=== PATIENT | male | born 1960 | race Caucasian/White ===

== ENCOUNTER → 2016-06-11 | Outpatient (CLI) | payer OTHER ==
[~2016-06-11] MED LIST: FENOGLIDE40 MG PO; HYDROCODONE-AP1 EAC6 PO; REMICADE 1100 MG/VIA
--- NOTE | ~2016-06-11 | EKG ---
[address] [address] ELECTROCARDIOGRAM REPORT Name: DENEENBrennaMATTSHAR [id number] Admission: 06/11/16 Attend Phys: Damaso Bowens DO Discharge: Date of : 60 Report #: [id number] THIS REPORT FOR: //name// 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: RAVINDRA : 1960 Requested By: Damaso Bowens Order Number: [id number] MD: Vikram Echavarria Measurements Intervals [place] Rate: 93 P: 54 ND: 200 QRS: 35 QRSD: 88 T: 21 QT: 356 QTc: 443 Interpretive Statements Sinus rhythm Borderline prolonged ND interval Otherwise normal tracing No previous ECG available for comparison Electronically Signed On 06-12-2016 7:48:04 CDT by Vikram Echavarria [email or web address] <ELECTRONICALLY SIGNED> By: Vikram Echavarria MD, [facility] 06/12/16 0748 [id number] 06 Vikram Echavarria MD, FACC /EPI
== END | disposition home or self-care (01) ==
LOC: LITH 06:04
DX: N20.0 Calculus of kidney (principal); E78.00 Pure hypercholesterolemia, unspecified

== ENCOUNTER 2020-06-04 21:56 | Inpatient (IN) | payer BC ==
[~2020-06-04] VITALS: Ht 182.9 cm; Wt 93.7 kg
[2020-06-04 21:45] VITALS: BP 133/75
[2020-06-04] MEDS ORDERED: IRON325 PO (23:15)
[2020-06-04] MEDS ORDERED: FISH OIL 1,001000 M3 PO (23:16)
[2020-06-04] MEDS ORDERED: VITAMIN D325 MC1 PO (23:16)
[2020-06-04] MEDS ORDERED: B COMPLEX1 EACH PO (23:17)
[2020-06-04] MEDS ORDERED: ZINC50 M1 PO (23:17)
[2020-06-04] MEDS ORDERED: TOPROL XL25 MG PO (23:19)
--- NOTE | 2020-06-05 00:54 | NUR ---
2150: PATIENT HERE PER EMS AND WALKED TO BED WITH STEADY GAIT. ADMISSION PROCESS INITIATED. AWAITING TO HAVE PATIENT IN COMPUTOR. 2240: SHERMAN MUNIZP HERE. ADMISSION PROCESS COMPLETED. ORIENTED TO ROOM AND FLOOR POLICIES. VOICES UNDERSTANDING. UP AD LAURIE WITH STEADY GAIT. DENIES COMPLAINTS OF PAIN, NAUSEA OR VOMITTING AT THIS TIME. 2345: ORDERS FOR MST. TELEMETRY SHOWS ST, 1 DEGREE AVB RATE 93. RESTING QUIETLY WITHOUT COMPLAINTS.
[2020-06-05] MEDS ORDERED: METOPROLOL TART25 MG PO (02:03)
[2020-06-05 03:30] VITALS: BP 115/71
--- NOTE | 2020-06-05 05:03 | NUR ---
STRAINED ALL URINE. NO STONES RETRIEVED. PAIN MEDICATION GIVEN NEEDED. STATES HAS SOME NAUSEA AND DENIES NEED FOR NAUSEA MED. WORKING ON GOALS AND PLAN OF CARE FOR NOC. CONTINUE TO ASHLEY COSTELLO.
[2020-06-05 05:04] LABS: CALCIUM 7.5 mg/dL (8.5-10.1)
[2020-06-05 05:23] LABS: CHOLESTEROL 95 mg/dL (<200); HDL CHOLESTEROL 28 mg/dL (>40); LDL CHOLESTEROL 34 mg/dL (<100); TC:HDL 3.4 Ratio (Not establshd); TRIGLYCERIDE 165 mg/dL (<150); VLDL 33 mg/dL (<40)
[2020-06-05 05:24] LABS: SERUM ASSESSMENT Clear
[2020-06-05 05:28] LABS: HEMATOCRIT 35.9 % (42.0-52.0); HEMOGLOBIN 11.6 gm/dL (14.0-18.0); MCHC 32.3 g/dL (28.0-37.0); MCV 89.9 fL (80.0-100.0); RBC 3.99 mil/uL (4.50-6.00); WBC 11.9 thou/uL (4.0-11.0)
--- NOTE | 2020-06-05 08:14 | NUR ---
ASSUMED PT CARE AT 0700. PT ASSESSMENT PERFORMED CHARTED. PTS PLAN FOR THE DAY IS TO GO TO SURGERY WITH UROLOGY TO RETRIEVE KIDNEY STONE. PTS PROCEDURE PLANNED FOR 0900. PT THEN COULD POSSIBLY GO HOME FOLLOWING PROCEDURE PER UROLOGY. VSS. WILL CONTINUE TO MONITOR AND FOLLOW POC.
[2020-06-05 08:26] VITALS: BP 125/75
[2020-06-05 16:01] VITALS: BP 110/68
--- NOTE | 2020-06-05 16:34 | NUR ---
PT STATES HE IS FEELS LIKE SOME URINARY RETENTION. PT WAS BLADDER SCANNED, PT HAS 109ML IN HIS BLADDER.
--- NOTE | 2020-06-05 18:00 | NUR ---
PHONE CALL PLACED TO DR DUONG ABOUT PATIENTS BLOOD CLOTS IN URINE. AWAITING CALL BACK.
[2020-06-05 19:39] VITALS: BP 111/55
[2020-06-05 23:44] VITALS: BP 107/65
[2020-06-06 04:20] LABS: HEMATOCRIT 34.4 % (42.0-52.0); HEMOGLOBIN 11.3 gm/dL (14.0-18.0); MCH 29.5 pg (26.0-34.0); MCHC 32.9 g/dL (28.0-37.0); MCV 89.4 fL (80.0-100.0); RBC 3.85 mil/uL (4.50-6.00); RDW 14.1 % (10.5-14.5); WBC 14.8 thou/uL (4.0-11.0)
[2020-06-06 04:26] LABS: CALCIUM 7.5 mg/dL (8.5-10.1); CREATININE 2.7 mg/dL (0.7-1.3); MAGNESIUM 1.3 mg/dL (1.8-2.4); POTASSIUM 3.2 mmol/L (3.5-5.1)
[2020-06-06 04:53] VITALS: BP 106/51
--- NOTE | 2020-06-06 05:47 | NUR ---
PT UP TO BR TO USE URINAL, URINE COLOR HAS LIGHTENED TO PINK TINGED URINE WITH SMALL CLOTS THRU THE NOC, VSS WITH TEMP AT 100.3 AND TYLRNOL GIVEN, PT REQUESTING PO PAIN MEDS RECEIVED ORDER FROM ONCALL HOSPITALIST, PT STATES PAIN AND SPASMS ARE BETTER CONTROLLED THIS AM, HR ST WITH RATE UP TO 120 TO 140 WITH URINATION, WILL CON'T TO MONITOR PER PPOC.
[2020-06-06 07:00] VITALS: BP 110/66
[2020-06-06 09:31] LABS: URINE BILIRUBIN NEGATIVE (Negative); URINE BLOOD 3+ (Negative); URINE CLARITY CLEAR; URINE COLOR YELLOW; URINE GLUCOSE-RANDOM* NEGATIVE (Negative); URINE KETONES NEGATIVE (Negative); URINE NITRITE-REFLEX NEGATIVE (Negative); URINE PROTEIN (DIPSTICK) 2+ (Negative); URINE SPECIFIC GRAVITY 1.015 (1.005-1.035); URINE UROBILINOGEN 0.2 E.U./dl (0.2-1.0)
[2020-06-06 09:32] LABS: URINE LEUKOCYTES-REFLEX 1+ (Negative)
[2020-06-06 09:38] LABS: CASTS None Seen /LPF (None Seen); SQUAMOUS None Seen /LPF (0-3)
[2020-06-06 09:39] LABS: BACTERIA-REFLEX 1-9 Few /HPF (None Seen); CRYSTALS None Seen /LPF (None Seen); URINE RBC >20 Many /HPF (NONE SEEN); URINE WBC-REFLEX 6-15 Few /HPF (0-5)
[2020-06-06 12:00] VITALS: BP 114/68
[2020-06-06 16:00] VITALS: BP 106/61
[2020-06-06 19:00] VITALS: BP 108/66
[2020-06-07 03:30] VITALS: BP 132/74
[2020-06-07 05:42] LABS: ALBUMIN 2.3 g/dL (3.4-5.0); CALCIUM 7.7 mg/dL (8.5-10.1); PHOSPHORUS 2.5 mg/dL (2.5-4.9); POTASSIUM 3.9 mmol/L (3.5-5.1)
--- NOTE | 2020-06-07 06:18 | NUR ---
ASSUMED CARE AT 1900. GAVE PAIN MEDS x1 OVERNIGHT. STRAINING URINE OVERNIGHT, NO KIDNEY STONES NOTED; URINE IS ORANGE COLOR W/SLIGHT BLOOD TINGE PRESENT. SR-ST, HR IN 120'S WHEN UP TO BATHROOM OR HAVING PAIN. NO OTHER CONCERNS, POSSIBLE D/C HOME TODAY.
[2020-06-07 07:56] VITALS: BP 118/77
[2020-06-07 08:07] LABS: ABSOLUTE NEUTROPHILS 8.2 thou/uL (1.4-8.2); BASOPHILS 1.2 % (0.0-2.0); EOSINOPHILS 3.2 % (0.0-3.0); HEMATOCRIT 34.3 % (42.0-52.0); HEMOGLOBIN 11.3 gm/dL (14.0-18.0); LYMPHOCYTES 17.8 % (24.0-44.0); MCH 29.7 pg (26.0-34.0); MCHC 32.9 g/dL (28.0-37.0); MCV 90.3 fL (80.0-100.0); MONOCYTES 10.5 % (1.0-8.0); PLATELET COUNT 242 thou/uL (150-400); POLYS 67.3 % (36.0-66.0); RBC 3.81 mil/uL (4.50-6.00); WBC 12.1 thou/uL (4.0-11.0)
[2020-06-07] MEDS ORDERED: CIPRO500 M1 PO (12:05)
[2020-06-07] MEDS ORDERED: HYOSCYAMINE0.125 M1 PO (12:05)
[2020-06-07] MEDS ORDERED: ACETAMINOPHEN325 M1 PO (12:05)
[2020-06-07] MEDS ORDERED: PHENAZOPYRIDIN100 M1 PO (12:05)
[2020-06-07] MEDS ORDERED: FLOMAX0.4 MG PO (12:05)
[2020-06-07] MEDS ORDERED: MAGNESIUM400 MG PO (12:05)
[2020-06-07 12:59] VITALS: BP 118/77
--- NOTE | 2020-06-07 13:56 | NUR ---
ASSUMED PATIENT CARE AT 0700. PATIENT HAVING FREQUENT URINATION, NO STONES FOUND UPON STRAINING. PATIENT DISCHARGED. IV REMOVED. DISCHARGE PACKET REVIEWED WITH PATIENT. NEW MEDICATIONS AND FOLLOW UP APPOINTMENTS REVIEWED. PATIENT ESCORTED OUTSIDE VIA WHEELCHAIR.
== END 2020-06-07 15:16 | disposition home or self-care (01) | DRG 660 ==
LOC: 2N 21:56
PROVIDERS: Internal Medicine Nephrology; Nurse Practitioner Family; Physician Assistant; ADMIT Internal Medicine; ATTEND Internal Medicine
PROC: 0T778DZ Dilation of Left Ureter with Intraluminal Device, Via Natural or Artificial Opening Endoscopic (ICD-10-PCS; principal; 2020-06-05)
PROC: 0TC78ZZ Extirpation of Matter from Left Ureter, Via Natural or Artificial Opening Endoscopic (ICD-10-PCS; principal; 2020-06-05)
DX: N13.6 Pyonephrosis (principal); K50.90 Crohn's disease, unspecified, without complications; S37.10XA Unspecified injury of ureter, initial encounter; D62 Acute posthemorrhagic anemia; Q61.3 Polycystic kidney, unspecified; N17.9 Acute kidney failure, unspecified; Z96.0 Presence of urogenital implants; E78.5 Hyperlipidemia, unspecified; Y33.XXXA Other specified events, undetermined intent, initial encounter; D63.8 Anemia in other chronic diseases classified elsewhere; E87.6 Hypokalemia; K52.3 Indeterminate colitis; N18.9 Chronic kidney disease, unspecified; I12.9 Hypertensive chronic kidney disease with stage 1 through stage 4 chronic kidney disease, or unspecified chronic kidney disease; Z86.16 Personal history of COVID-19; Z88.8 Allergy status to other drugs, medicaments and biological substances; Z79.899 Other long term (current) drug therapy; Z87.442 Personal history of urinary calculi; Z87.891 Personal history of nicotine dependence; Y93.89 Activity, other specified; Y92.89 Other specified places as the place of occurrence of the external cause; Y99.8 Other external cause status; N32.89 Other specified disorders of bladder; R31.0 Gross hematuria; R35.0 Frequency of micturition; E83.42 Hypomagnesemia
CPT/HCPCS: 10081; 50010; 50101; 50164; 51767; 51776; 53331; 53650; 56815; 57160; 58565; 58732; 62110; 62900; 70005

== ENCOUNTER 2021-03-10 18:11 | Inpatient (IN) | payer BC, OTHER ==
[~2021-03-10] VITALS: Ht 182.9 cm; Wt 93.0 kg
[~2021-03-10 18:11] MED LIST changes: +ACETAMINOPHEN325 M1 PO; +B COMPLEX1 EACH PO; +CIPRO500 M1 PO; +FISH OIL 1,001000 M3 PO; +FLOMAX0.4 MG PO; +HYOSCYAMINE0.125 M1 PO; +IRON325 PO; +MAGNESIUM400 MG PO; +METOPROLOL TART25 MG PO; +PHENAZOPYRIDIN100 M1 PO; +TOPROL XL25 MG PO; +VITAMIN D325 MC1 PO; +ZINC50 M1 PO
[2021-03-10 18:27] VITALS: BP 149/87
[2021-03-10 18:33] LABS: URINE BILIRUBIN NEGATIVE (Negative); URINE BLOOD 2+ (Negative); URINE CLARITY CLEAR; URINE COLOR YELLOW; URINE GLUCOSE-RANDOM* NEGATIVE (Negative); URINE KETONES NEGATIVE (Negative); URINE LEUKOCYTES-REFLEX NEGATIVE (Negative); URINE NITRITE-REFLEX NEGATIVE (Negative); URINE PROTEIN (DIPSTICK) TRACE (Negative); URINE SPECIFIC GRAVITY >= 1.030 (1.005-1.035); URINE UROBILINOGEN 0.2 E.U./dl (0.2-1.0)
[2021-03-10 18:51] LABS: BACTERIA-REFLEX 1-9 Few /HPF (None Seen); CASTS None Seen /LPF (None Seen); CRYSTALS None Seen /LPF (None Seen); SQUAMOUS None Seen /LPF (0-3); URINE WBC-REFLEX 0-5 Rare /HPF (0-5)
[2021-03-10 19:29] LABS: HEMOGLOBIN 13.9 gm/dL (14.0-18.0); RBC 4.79 mil/uL (4.50-6.00)
[2021-03-10 19:31] LABS: MCHC 32.3 g/dL (28.0-37.0); MCV 89.7 fL (80.0-100.0); PLATELET COUNT 422 thou/uL (150-400); RDW 14.6 % (10.5-14.5); WBC 20.6 thou/uL (4.0-11.0)
[2021-03-10 20:00] LABS: ABSOLUTE NEUTROPHILS 14.6 thou/uL (1.4-8.2)
[2021-03-10 20:58] LABS: ALBUMIN 3.1 g/dL (3.4-5.0); CALCIUM 7.8 mg/dL (8.5-10.1); CREATININE 1.6 mg/dL (0.7-1.3); TOTAL BILIRUBIN 0.4 mg/dL (0.2-1.0); TOTAL PROTEIN 6.6 g/dL (6.4-8.2)
[2021-03-10 21:02] LABS: POTASSIUM 4.3 mmol/L (3.5-5.1)
[2021-03-10 22:24] LABS: CHOLESTEROL 115 mg/dL (<200); HDL CHOLESTEROL 31 mg/dL (>40); LDL CHOLESTEROL 14 mg/dL (<100); TC:HDL 3.7 Ratio (Not establshd); TRIGLYCERIDE 352 mg/dL (<150); VLDL 70 mg/dL (<40)
[2021-03-10 22:25] LABS: SERUM ASSESSMENT Clear
[2021-03-10 23:30] VITALS: BP 128/87
[2021-03-11] VITALS: BP 145/97
--- NOTE | 2021-03-11 01:02 | NUR ---
PT IS A/O X4 AND IS UP AD LAURIE. RA. VSS. AFEBRILE. C/O PAIN TO LEFT FLANK. PRN PAIN MEDICATION GIVEN. FLUIDS INFUSING AT PRESCRIBED RATE. IV TO RIGHT AC INFILTRATED AND REMOVED. ADMISSION COMPLETED. PT EDUCATED ON USE OF CALL LIGHT AND BED CONTROLS. CALLS OUT APPROPRIATELY FOR ASSISTANCE. CALL LIGHT IS WITHIN REACH.
[2021-03-11 05:18] LABS: HEMOGLOBIN 13.2 gm/dL (14.0-18.0); RBC 4.54 mil/uL (4.50-6.00); RDW 13.5 % (10.5-14.5); WBC 14.5 thou/uL (4.0-11.0)
[2021-03-11 05:33] LABS: CREATININE 1.7 mg/dL (0.7-1.3); POTASSIUM 3.6 mmol/L (3.5-5.1)
[2021-03-11 07:24] VITALS: BP 122/77
--- NOTE | 2021-03-11 10:31 | NUR ---
Assumed care of pt at 0700. Pt a&ox4. Up ad santiago. Pt states pain is much better. Urology consulted. Tentatively scheduled for surgery. IVF infusing. Call light within reach. Will continue to monitor.
[2021-03-11 12:07] LABS: MAGNESIUM 1.6 mg/dL (1.8-2.4); PHOSPHORUS 3.2 mg/dL (2.5-4.9)
[2021-03-11 16:22] VITALS: BP 122/77
== END 2021-03-11 17:25 | disposition home or self-care (01) | DRG 690 ==
LOC: ER 18:11 → EROBS 20:24 → ER 20:24 → 4S 23:55 → EROBS 23:59 → 4S 23:59
PROVIDERS: Nurse Practitioner Family; Physician Assistant; ADMIT Hospitalist; ATTEND Hospitalist
DX: N13.6 Pyonephrosis (principal); K50.90 Crohn's disease, unspecified, without complications; N17.9 Acute kidney failure, unspecified; D64.9 Anemia, unspecified; Z20.822 Contact with and (suspected) exposure to COVID-19; E78.5 Hyperlipidemia, unspecified; Z86.16 Personal history of COVID-19; Z88.8 Allergy status to other drugs, medicaments and biological substances; Z87.891 Personal history of nicotine dependence
CPT/HCPCS: 10195

== ENCOUNTER 2021-03-24 22:03 | Inpatient (IN) | payer BC, OTHER ==
[~2021-03-24] VITALS: Ht 182.9 cm; Wt 93.0 kg
[2021-03-24 22:09] VITALS: BP 150/82
[2021-03-24 23:02] LABS: ABSOLUTE NEUTROPHILS 12.7 thou/uL (1.4-8.2); BASOPHILS 0.8 % (0.0-2.0); HEMATOCRIT 39.4 % (42.0-52.0); LYMPHOCYTES 15.1 % (24.0-44.0); MCH 29.4 pg (26.0-34.0); MCHC 32.9 g/dL (28.0-37.0); MCV 89.3 fL (80.0-100.0); PLATELET COUNT 343 thou/uL (150-400); POLYS 76.1 % (36.0-66.0); RBC 4.42 mil/uL (4.50-6.00); RDW 13.5 % (10.5-14.5); WBC 16.7 thou/uL (4.0-11.0)
[2021-03-24 23:10] LABS: URINE BILIRUBIN NEGATIVE (Negative); URINE BLOOD 1+ (Negative); URINE CLARITY CLEAR; URINE COLOR YELLOW; URINE GLUCOSE-RANDOM* NEGATIVE (Negative); URINE KETONES NEGATIVE (Negative); URINE LEUKOCYTES-REFLEX NEGATIVE (Negative); URINE NITRITE-REFLEX NEGATIVE (Negative); URINE PROTEIN (DIPSTICK) NEGATIVE (Negative); URINE SPECIFIC GRAVITY 1.025 (1.005-1.035); URINE UROBILINOGEN 0.2 E.U./dl (0.2-1.0)
[2021-03-24 23:12] LABS: CALCIUM 7.8 mg/dL (8.5-10.1); CREATININE 1.7 mg/dL (0.7-1.3); POTASSIUM 4.1 mmol/L (3.5-5.1)
[2021-03-24 23:16] LABS: ALBUMIN 2.9 g/dL (3.4-5.0); TOTAL BILIRUBIN 0.3 mg/dL (0.2-1.0); TOTAL PROTEIN 6.4 g/dL (6.4-8.2)
[2021-03-24 23:35] LABS: BACTERIA-REFLEX 1-9 Few /HPF (None Seen); CASTS None Seen /LPF (None Seen); CRYSTALS None Seen /LPF (None Seen); MUCUS 0-3 Light strn/LPF (None Seen); SQUAMOUS 0-3 Few /LPF (0-3); URINE RBC 3-10 Few /HPF (NONE SEEN); URINE WBC-REFLEX 0-5 Rare /HPF (0-5)
[2021-03-25 00:54] VITALS: BP 123/80
[2021-03-25 02:25] VITALS: BP 132/90
[2021-03-25 10:36] LABS: HEMATOCRIT 37.8 % (42.0-52.0); HEMOGLOBIN 12.4 gm/dL (14.0-18.0); MCHC 32.7 g/dL (28.0-37.0); MCV 88.7 fL (80.0-100.0); RBC 4.26 mil/uL (4.50-6.00); RDW 13.6 % (10.5-14.5); WBC 12.4 thou/uL (4.0-11.0)
[2021-03-25 10:46] LABS: CREATININE 1.9 mg/dL (0.7-1.3); MAGNESIUM 1.7 mg/dL (1.8-2.4); POTASSIUM 3.9 mmol/L (3.5-5.1)
[2021-03-25 11:02] VITALS: BP 1128/82
[2021-03-25 12:45] VITALS: BP 146/91
--- NOTE | 2021-03-25 15:45 | NUR ---
Patient arrived to the floor at 1345, axox4, patient is up as own, family at bedside. no pain, straining urine. call light within reach, will continous monitoring.
[2021-03-25 17:09] VITALS: BP 129/85
[2021-03-25 19:01] VITALS: BP 128/69
[2021-03-26 04:19] VITALS: BP 139/69
[2021-03-26 05:43] LABS: HEMATOCRIT 34.3 % (42.0-52.0); HEMOGLOBIN 11.2 gm/dL (14.0-18.0); MCH 29.2 pg (26.0-34.0); MCHC 32.7 g/dL (28.0-37.0); MCV 89.3 fL (80.0-100.0); RBC 3.84 mil/uL (4.50-6.00); RDW 13.4 % (10.5-14.5); WBC 11.5 thou/uL (4.0-11.0)
[2021-03-26 06:08] LABS: CALCIUM 7.6 mg/dL (8.5-10.1); CREATININE 2.2 mg/dL (0.7-1.3); MAGNESIUM 1.6 mg/dL (1.8-2.4)
[2021-03-26 07:45] VITALS: BP 121/78
--- NOTE | 2021-03-26 08:03 | NUR ---
PT AMBULATING TO BATHROOM INDEPENDENTLY AND IS TOLERATING WELL. DENIES NEED FOR PAIN MEDICATION. RESTING COMFORTABLY. NO NEEDS VOICED. CALL LIGHT WITHIN REACH. FREQUENT OBSERVATION.
[2021-03-26 18:37] VITALS: BP 110/68
--- NOTE | 2021-03-26 19:09 | NUR ---
Patient is alert and oriented x4, ambulating in the odell, straining urine, but not passing any stone. surgery tomorrow, call light within reach, will continous monitoring.
[2021-03-26 20:38] VITALS: BP 122/68
--- NOTE | 2021-03-27 05:34 | NUR ---
ASSUMED PT CARE THIS PM.PT IS ALERT AND ORIENTED X4. PT DID NOT C/O PAIN.URINE IS BEING STRAINED. MEDS WERE GIVEN PER EMAR ORDERS. PT IS ON RA. FALL PRECAUTIONS IN PLACE.WILL CONTINUE TO MONITOR.
[2021-03-27 05:52] LABS: HEMATOCRIT 32.6 % (42.0-52.0); HEMOGLOBIN 10.9 gm/dL (14.0-18.0); MCH 29.9 pg (26.0-34.0); MCHC 33.3 g/dL (28.0-37.0); MCV 89.7 fL (80.0-100.0); RBC 3.64 mil/uL (4.50-6.00); RDW 13.5 % (10.5-14.5); WBC 9.6 thou/uL (4.0-11.0)
[2021-03-27 05:59] LABS: CALCIUM 8.1 mg/dL (8.5-10.1); CREATININE 2.1 mg/dL (0.7-1.3); MAGNESIUM 1.7 mg/dL (1.8-2.4)
[2021-03-27 08:59] VITALS: BP 116/62
--- NOTE | 2021-03-27 11:42 | O ---
[facility] [place] [address] OPERATIVE REPORT Name: LUIS GREENBERG Room #: 448-P [facility] M.R.#: [id number] Admission: 03/25/21 Attend Phys: Amish Lake MD Discharge: Date of : 60 Report #: [id number] THIS REPORT FOR: cc: Casey Ibarra MD, Michael M. MD Park,Daryl Kenyon MD ~ DATE OF SERVICE: 03/27/2021 PREOPERATIVE DIAGNOSIS: Left ureteral stone. POSTOPERATIVE DIAGNOSIS: Left ureteral stone. PROCEDURE: Cystoscopy, left ureteroscopy, laser lithotripsy, left retrograde pyelogram, left stent placement. SURGEON: Daryl Bae M.D. ANESTHESIA: General. ESTIMATED BLOOD LOSS: None. COMPLICATIONS: None. FINDINGS: Left distal stone, lasered and removed. Drain is left 6 x 28 stent - removing one in 3 weeks. SPECIMENS: Stone sent for analysis. INDICATIONS: This is a 60-year-old gentleman who came in with flank pain. He has had multiple stones in the past. CT shows a left distal stone. He tried passing conservatively without success. He is now here for ureteroscopy. Risks and complications explained. Wants to proceed. DESCRIPTION OF PROCEDURE: After informed consent was obtained, the patient was taken to the operative suite where he was placed in the dorsal lithotomy position under general anesthetic. The genitalia was prepped and draped in standard fashion. A 22-Kazakh rigid scope was placed per urethra and bladder. Prostate was mildly enlarged, but nonobstructing. Bladder was grossly unremarkable. Left UO was identified. A wire was used to cannulate the left orifice and a wire up into the kidney. There is some mild manipulation to get beyond the stone. Alongside the wire, a ureteroscope was then placed into the distal ureter. Stone was identified. There was an area of impaction with edema there. Laser was used to break the stone into multiple pieces. Basket was used to then remove the stone fragments. Leaving the wire in place retrograde was done through the scope showing no obstruction proximal to that stone. There was some hydronephrosis noted. Leaving the wire in place, the ureteroscope was [facility] [address] [place] [address] OPERATIVE REPORT Name: LUIS GREENBERG Room #: 448-P [facility] ..#: [id number] Admission: 03/25/21 Attend Phys: Amish Lake MD Discharge: Date of : 60 Report #: [id number]. Over the wire, the cystoscope was backloaded. Over the wire, a 6 x 28 stent was placed. It showed a good curl up in the kidney and down to the bladder. Stone fragments were removed and sent for analysis. Bladder was drained, scope was withdrawn. The patient tolerated the procedure well. He was sent to recovery room in stable condition. The patient is okay to go home from a urologic standpoint. We will defer to hospitalist. He will need a stone risk analysis done. Stent can be removed in 1 to 3 weeks. <ELECTRONICALLY SIGNED> By: Daryl Bae MD 03/27/21 1142 1008 [id number] Daryl Bae MD /nt
[2021-03-27] MEDS ORDERED: FLOMAX0.4 MG PO (13:55)
[2021-03-27 16:06] VITALS: BP 116/62
--- NOTE | 2021-03-27 16:20 | NUR ---
Patient returned from procedure at approx 1215. See Sx. notes (stent replacement, stone removal, etc). Patient denies pain & is deemed medically stable to discharge. Patient discharging home with no needs.
[2021-03-27 16:32] VITALS: BP 112/65
== END 2021-03-27 16:37 | disposition home or self-care (01) | DRG 660 ==
LOC: ER 22:03 → EROBS 03-25 02:42 → 4S 03-25 02:42
PROVIDERS: Emergency Medicine; Internal Medicine; ADMIT Hospitalist; ATTEND Hospitalist
PROC: 0TC78ZZ Extirpation of Matter from Left Ureter, Via Natural or Artificial Opening Endoscopic (ICD-10-PCS; principal; 2021-03-27)
PROC: 0T778DZ Dilation of Left Ureter with Intraluminal Device, Via Natural or Artificial Opening Endoscopic (ICD-10-PCS; principal; 2021-03-27)
PROC: BT1F1ZZ Fluoroscopy of Left Kidney, Ureter and Bladder using Low Osmolar Contrast (ICD-10-PCS; principal; 2021-03-27)
DX: N13.2 Hydronephrosis with renal and ureteral calculous obstruction (principal); K50.90 Crohn's disease, unspecified, without complications; Q61.3 Polycystic kidney, unspecified; N17.9 Acute kidney failure, unspecified; E66.9 Obesity, unspecified; D63.8 Anemia in other chronic diseases classified elsewhere; D72.829 Elevated white blood cell count, unspecified; E78.5 Hyperlipidemia, unspecified; Z20.822 Contact with and (suspected) exposure to COVID-19; Z87.442 Personal history of urinary calculi; Z86.16 Personal history of COVID-19; Z79.899 Other long term (current) drug therapy; Z88.1 Allergy status to other antibiotic agents; Z68.27 Body mass index [BMI] 27.0-27.9, adult
CPT/HCPCS: 10100; 50010; 50101; 50164; 51620; 51767; 56815; 57160; 58565; 62110; 62900; 70005